=== PATIENT | female | born 1985 | race Hispanic/Latino ===

== ENCOUNTER 2018-07-06 20:41 | Emergency (ER) | payer OTHER ==
[~2018-07-06] VITALS: Ht 154.9 cm; Wt 59.0 kg
[~2018-07-06 20:41] MED LIST: CIPRO500 MG OR; LORTAB 5 OR; MEDDOSEPAK OR; NO HOME MEDS; ZITHROMAX500 MG OR
[2018-07-06 23:17] VITALS: BP 126/84
== END 2018-07-07 00:05 | disposition home or self-care (01) | DRG 605 ==
LOC: ED 20:41
DX: S30.0XXA Contusion of lower back and pelvis, initial encounter (principal); W17.89XA Other fall from one level to another, initial encounter

== ENCOUNTER 2019-02-28 16:54 | Emergency (ER) | payer OTHER ==
[~2019-02-28] VITALS: Ht 154.9 cm; Wt 64.0 kg
[2019-02-28] MEDS ORDERED: TORADOL PO (18:02)
[2019-02-28 18:09] VITALS: BP 140/89
== END 2019-02-28 18:15 | disposition home or self-care (01) | DRG 605 ==
LOC: ED 16:54
DX: S00.83XA Contusion of other part of head, initial encounter (principal); W21.03XA Struck by baseball, initial encounter; Y93.64 Activity, baseball; Y92.007 Garden or yard of unspecified non-institutional (private) residence as the place of occurrence of the external cause; R42 Dizziness and giddiness; R11.0 Nausea

== ENCOUNTER 2019-03-19 19:16 | Emergency (ER) | payer OTHER ==
[~2019-03-19] VITALS: Ht 154.9 cm; Wt 60.0 kg
[~2019-03-19 19:16] MED LIST changes: +TORADOL PO
[2019-03-19 20:45] VITALS: BP 140/94
== END 2019-03-19 20:45 | disposition home or self-care (01) | DRG 914 ==
LOC: ED 19:16
DX: S67.196A Crushing injury of right little finger, initial encounter (principal); W23.0XXA Caught, crushed, jammed, or pinched between moving objects, initial encounter; Y93.89 Activity, other specified; Y92.009 Unspecified place in unspecified non-institutional (private) residence as the place of occurrence of the external cause

== ENCOUNTER 2019-05-16 15:17 | Emergency (ER) | payer OTHER ==
[~2019-05-16] VITALS: Ht 154.9 cm; Wt 57.7 kg
[2019-05-16] MEDS ORDERED: VOLTAREN - GENE75 MG PO (17:14)
[2019-05-16] MEDS ORDERED: FLEXERIL5 MG PO (17:14)
[2019-05-16 17:37] VITALS: BP 122/86
== END 2019-05-16 17:37 | disposition home or self-care (01) | DRG 605 ==
LOC: ED 15:17
DX: S10.93XA Contusion of unspecified part of neck, initial encounter (principal); S16.1XXA Strain of muscle, fascia and tendon at neck level, initial encounter; W20.8XXA Other cause of strike by thrown, projected or falling object, initial encounter; Y92.89 Other specified places as the place of occurrence of the external cause

== ENCOUNTER 2019-08-11 | Emergency (ER) | payer OTHER ==
[~2019-08-11] MED LIST changes: +FLEXERIL5 MG PO; +VOLTAREN - GENE75 MG PO
[2019-08-11 18:44] LABS: URINE BILIRUBIN - DIPSTICK NEGATIVE (NEGATIVE); URINE BLOOD DIPSTICK TRACE-INTACT (NEGATIVE); URINE COLOR YELLOW; URINE GLUCOSE - DIPSTICK NEGATIVE (NEGATIVE); URINE KETONE NEGATIVE (NEGATIVE); URINE LEUK ESTERASE NEGATIVE (NEGATIVE); URINE NITRITE - DIPSTICK NEGATIVE (Negative); URINE PROTEIN - DIPSTICK NEGATIVE (NEG-TRACE); URINE SPECIFIC GRAVITY >=1.030; URINE UROBILINOGEN - DIPSTICK 0.2 E.U./dL (0.2)
[2019-08-11 18:46] LABS: HEMATOCRIT 38.5 % (37.0-47.0); HEMOGLOBIN 12.8 g/dl (12.0-16.0); IMMATURE GRANULOCYTES 0.3 % (0.0-5.0); MEAN CORPUSCULAR HGB CONC 33.2 g/L CALC (32.0-36.0); NEUT# 6.13 thou/uL (2.00-7.15); RED BLOOD COUNT 4.26 mill/uL (4.20-5.60); RED CELL DISTRI WIDTH 12.7 % (11.5-15.5)
[2019-08-11 18:57] LABS: MEAN CELL VOLUME 90.4 fL CALC (80.0-100.0)
[2019-08-11 19:25] LABS: ALBUMIN 4.1 g/dL (3.2-5.0); ALKALINE PHOSPHATASE 49 u/l (38-126); ANION GAP 11 (6-22 (CALC)); BUN 18 mg/dL (7-17); BUN/CREATININE RATIO 36 (12-20 (CALC)); CARBON DIOXIDE 25 mmol/l (22-30); CHLORIDE 108 mmol/l (95-108); CREATININE 0.5 mg/dL (0.5-1.0); GFR > 60 ML/MIN (>=60 (CALC)); GFR FOR AFR.AMER. > 60 ML/MIN (>=60 (CALC)); LIPASE 104 u/l (23-300); SGOT/AST 21 u/l (14-36); SODIUM 140 mmol/l (137-146); TOTAL PROTEIN 7.4 g/dL (6.3-8.2)
[2019-08-11 19:30] LABS: BILIRUBIN, TOTAL 0.6 mg/dL (0.0-1.4)
[2019-08-11] MEDS ORDERED: IBUPROFEN600 MG PO (20:59)
== END 2019-08-11 21:20 | disposition home or self-care (01) | DRG 204 ==
DX: R07.81 Pleurodynia (principal); Z91.041 Radiographic dye allergy status; V58.1XXA Passenger in pick-up truck or van injured in noncollision transport accident in nontraffic accident, initial encounter
CPT/HCPCS: Q9967

== ENCOUNTER 2019-09-26 | Emergency (ER) | payer OTHER ==
[~2019-09-26] MED LIST changes: +IBUPROFEN600 MG PO
[2019-09-26 15:11] LABS: URINE BILIRUBIN - DIPSTICK NEGATIVE (NEGATIVE); URINE BLOOD DIPSTICK LARGE (NEGATIVE); URINE COLOR YELLOW; URINE GLUCOSE - DIPSTICK NEGATIVE (NEGATIVE); URINE KETONE NEGATIVE (NEGATIVE); URINE LEUK ESTERASE NEGATIVE (NEGATIVE); URINE NITRITE - DIPSTICK NEGATIVE (Negative); URINE PROTEIN - DIPSTICK NEGATIVE (NEG-TRACE); URINE SPECIFIC GRAVITY >=1.030; URINE UROBILINOGEN - DIPSTICK 0.2 E.U./dL (0.2)
[2019-09-26 15:20] LABS: URINE SQUAMOUS EPITHELIAL CELL FEW EPI/hpf (0-FEW); URINE WBC 0-2 WBC/hpf (0-5)
[2019-09-26] MEDS ORDERED: HYDROCO/APAP1 TA9 PO (18:33)
== END 2019-09-26 18:45 | disposition home or self-care (01) | DRG 552 ==
PROVIDERS: Family Medicine
DX: S22.080A Wedge compression fracture of T11-T12 vertebra, initial encounter for closed fracture (principal); W18.2XXA Fall in (into) shower or empty bathtub, initial encounter; Y93.E1 Activity, personal bathing and showering; Y92.002 Bathroom of unspecified non-institutional (private) residence as the place of occurrence of the external cause

== ENCOUNTER 2020-05-21 16:20 | Emergency (ER) | payer OTHER ==
[~2020-05-21] VITALS: Ht 144.8 cm; Wt 64.0 kg
[~2020-05-21 16:20] MED LIST changes: +HYDROCO/APAP1 TA9 PO
[2020-05-21 17:03] LABS: URINE BILIRUBIN - DIPSTICK NEGATIVE (NEGATIVE); URINE BLOOD DIPSTICK NEGATIVE (NEGATIVE); URINE COLOR YELLOW; URINE GLUCOSE - DIPSTICK NEGATIVE (NEGATIVE); URINE KETONE NEGATIVE (NEGATIVE); URINE LEUK ESTERASE NEGATIVE (NEGATIVE); URINE NITRITE - DIPSTICK NEGATIVE (Negative); URINE PROTEIN - DIPSTICK NEGATIVE (NEG-TRACE); URINE SPECIFIC GRAVITY >=1.030; URINE UROBILINOGEN - DIPSTICK 0.2 E.U./dL (0.2)
[2020-05-21 17:11] LABS: HEMATOCRIT 39.5 % (37.0-47.0); HEMOGLOBIN 12.8 g/dl (12.0-16.0); IMMATURE GRANULOCYTES 0.4 % (0.0-5.0); MEAN CELL VOLUME 90.6 fL CALC (80.0-100.0); MEAN CORPUSCULAR HGB 29.4 pG CALC (26.0-32.0); MEAN CORPUSCULAR HGB CONC 32.4 g/dL CAL (32.0-36.0); NEUT# 8.2 thou/uL (2.00-7.15); RED BLOOD COUNT 4.36 mill/uL (4.20-5.60); RED CELL DISTRI WIDTH 12.5 % (11.5-15.5)
[2020-05-21 17:21] LABS: ALBUMIN 3.9 g/dL (3.2-5.0); ALKALINE PHOSPHATASE 42 u/l (38-126); AMYLASE 52 u/l (30-110); ANION GAP 11 (6-22 (CALC)); BILIRUBIN, TOTAL 0.8 mg/dL (0.0-1.4); BUN 13 mg/dL (7-17); BUN/CREATININE RATIO 25 (12-20 (CALC)); CARBON DIOXIDE 26 mmol/l (22-30); CHLORIDE 106 mmol/l (95-108); CREATININE 0.5 mg/dL (0.5-1.0); GFR > 60 ML/MIN (>=60 (CALC)); GFR FOR AFR.AMER. > 60 ML/MIN (>=60 (CALC)); LIPASE 76 u/l (23-300); POTASSIUM 3.9 mmol/l (3.5-5.1); SGOT/AST 22 u/l (14-36); SODIUM 139 mmol/l (137-146); TOTAL PROTEIN 6.8 g/dL (6.3-8.2)
[2020-05-21] MEDS ORDERED: LOMOTIL2.5 MG PO (18:33)
[2020-05-21 18:36] VITALS: BP 123/90
== END 2020-05-21 19:05 | disposition home or self-care (01) | DRG 392 ==
LOC: ED 16:20
PROVIDERS: Emergency Medicine
DX: K52.9 Noninfective gastroenteritis and colitis, unspecified (principal); Z90.49 Acquired absence of other specified parts of digestive tract
CPT/HCPCS: S0164

== ENCOUNTER 2020-08-13 15:16 | Emergency (ER) | payer OTHER, MEDICAID ==
[~2020-08-13] VITALS: Ht 144.8 cm; Wt 56.2 kg
[~2020-08-13 15:16] MED LIST changes: +LOMOTIL2.5 MG PO
[2020-08-13 17:47] LABS: HEMATOCRIT 38.7 % (37.0-47.0); IMMATURE GRANULOCYTES 0.3 % (0.0-5.0); MEAN CORPUSCULAR HGB 30.2 pG CALC (26.0-32.0); MEAN CORPUSCULAR HGB CONC 33.6 g/dL CAL (32.0-36.0); NEUT# 4.79 thou/uL (2.00-7.15); RED BLOOD COUNT 4.3 mill/uL (4.20-5.60); RED CELL DISTRI WIDTH 12.2 % (11.5-15.5)
[2020-08-13 18:05] LABS: ALKALINE PHOSPHATASE 55 u/l (38-126); ANION GAP 9 (6-22 (CALC)); BILIRUBIN, TOTAL 0.6 mg/dL (0.0-1.4); BUN 14 mg/dL (7-17); BUN/CREATININE RATIO 26 (12-20 (CALC)); CARBON DIOXIDE 25 mmol/l (22-30); CHLORIDE 107 mmol/l (95-108); CREATININE 0.5 mg/dL (0.5-1.0); GFR > 60 ML/MIN (>=60 (CALC)); GFR FOR AFR.AMER. > 60 ML/MIN (>=60 (CALC)); LIPASE 125 u/l (23-300); POTASSIUM 3.8 mmol/l (3.5-5.1); SGOT/AST 20 u/l (14-36); SODIUM 137 mmol/l (137-146); TOTAL PROTEIN 7.2 g/dL (6.3-8.2)
[2020-08-13] MEDS ORDERED: ZOFRAN4 M1 PO (18:22)
[2020-08-13 18:34] LABS: URINE BILIRUBIN - DIPSTICK NEGATIVE (NEGATIVE); URINE BLOOD DIPSTICK SMALL (NEGATIVE); URINE COLOR YELLOW; URINE GLUCOSE - DIPSTICK NEGATIVE (NEGATIVE); URINE KETONE 15 mg/dL (NEGATIVE); URINE LEUK ESTERASE NEGATIVE (NEGATIVE); URINE NITRITE - DIPSTICK NEGATIVE (Negative); URINE PROTEIN - DIPSTICK NEGATIVE (NEG-TRACE); URINE SPECIFIC GRAVITY >=1.030; URINE UROBILINOGEN - DIPSTICK 0.2 E.U./dL (0.2)
[2020-08-13 18:36] LABS: URINE SQUAMOUS EPITHELIAL CELL FEW EPI/hpf (0-FEW); URINE WBC 0-2 WBC/hpf (0-5)
[2020-08-13 19:44] VITALS: BP 131/81
== END 2020-08-13 19:44 | disposition home or self-care (01) | DRG 392 ==
LOC: ED 15:16
PROVIDERS: Family Medicine
DX: R10.84 Generalized abdominal pain (principal); R11.0 Nausea; R19.7 Diarrhea, unspecified; Z20.822 Contact with and (suspected) exposure to COVID-19

== ENCOUNTER 2020-08-25 16:17 | Emergency (ER) | payer OTHER, MEDICAID ==
[~2020-08-25] VITALS: Ht 144.8 cm; Wt 60.0 kg
[~2020-08-25 16:17] MED LIST changes: +ZOFRAN4 M1 PO
[2020-08-25 17:48] VITALS: BP 148/89
== END 2020-08-25 17:53 | disposition home or self-care (01) | DRG 605 ==
LOC: ED 16:17
DX: S90.452A Superficial foreign body, left great toe, initial encounter (principal); W25.XXXA Contact with sharp glass, initial encounter; W45.8XXA Other foreign body or object entering through skin, initial encounter; T80.89XA Other complications following infusion, transfusion and therapeutic injection, initial encounter; R20.2 Paresthesia of skin; Y84.8 Other medical procedures as the cause of abnormal reaction of the patient, or of later complication, without mention of misadventure at the time of the procedure

== ENCOUNTER 2021-02-18 20:01 | Emergency (ER) | payer OTHER, MEDICAID ==
[2021-02-18] MEDS ORDERED: NAPROXEN500 MG PO (23:15)
[2021-02-19 00:12] VITALS: BP 140/52
== END 2021-02-19 00:12 | disposition home or self-care (01) | DRG 605 ==
LOC: ED 20:01
DX: S90.121A Contusion of right lesser toe(s) without damage to nail, initial encounter (principal); W22.03XA Walked into furniture, initial encounter; Y92.009 Unspecified place in unspecified non-institutional (private) residence as the place of occurrence of the external cause

== ENCOUNTER 2021-06-20 19:23 | Emergency (ER) | payer OTHER, MEDICAID ==
[~2021-06-20] VITALS: Ht 144.8 cm; Wt 61.0 kg
[~2021-06-20 19:23] MED LIST changes: +NAPROXEN500 MG PO
[2021-06-20 20:21] LABS: ALBUMIN 3.9 g/dL (3.2-5.0); ALKALINE PHOSPHATASE 51 u/l (38-126); ANION GAP 9 (6-22 (CALC)); BILIRUBIN, TOTAL 0.5 mg/dL (0.0-1.4); BUN 12 mg/dL (7-17); BUN/CREATININE RATIO 26 (12-20 (CALC)); CARBON DIOXIDE 28 mmol/l (22-30); CHLORIDE 106 mmol/l (95-108); CREATININE 0.5 mg/dL (0.5-1.0); GFR > 60 ML/MIN (>=60 (CALC)); GFR FOR AFR.AMER. > 60 ML/MIN (>=60 (CALC)); POTASSIUM 3.7 mmol/l (3.5-5.1); SGOT/AST 21 u/l (14-36); SODIUM 140 mmol/l (137-146); TOTAL PROTEIN 7.3 g/dL (6.3-8.2)
[2021-06-20 20:27] LABS: HEMATOCRIT 40.6 % (37.0-47.0); HEMOGLOBIN 13.4 g/dl (12.0-16.0); IMMATURE GRANULOCYTES 0.3 % (0.0-5.0); MEAN CELL VOLUME 92.3 fL CALC (80.0-100.0); MEAN CORPUSCULAR HGB 30.5 pG CALC (26.0-32.0); NEUT# 5.11 thou/uL (2.00-7.15); RED BLOOD COUNT 4.4 mill/uL (4.20-5.60); RED CELL DISTRI WIDTH 12.1 % (11.5-15.5)
[2021-06-20 21:13] LABS: URINE BILIRUBIN - DIPSTICK NEGATIVE (NEGATIVE); URINE BLOOD DIPSTICK MODERATE (NEGATIVE); URINE COLOR YELLOW; URINE GLUCOSE - DIPSTICK NEGATIVE (NEGATIVE); URINE KETONE NEGATIVE (NEGATIVE); URINE LEUK ESTERASE NEGATIVE (NEGATIVE); URINE PROTEIN - DIPSTICK NEGATIVE (NEG-TRACE); URINE SPECIFIC GRAVITY 1.015; URINE UROBILINOGEN - DIPSTICK 0.2 E.U./dL (0.2)
[2021-06-20 21:33] LABS: URINE AMORPH SEDIMENT FEW hpf (NONE-FEW); URINE BACTERIA FEW hpf; URINE NITRITE - DIPSTICK NEGATIVE (Negative); URINE SQUAMOUS EPITHELIAL CELL FEW EPI/hpf (0-FEW); URINE WBC 0-2 WBC/hpf (0-5)
[2021-06-20 22:38] VITALS: BP 120/60
== END 2021-06-20 22:45 | disposition home or self-care (01) | DRG 914 ==
LOC: ED 19:23
PROVIDERS: Family Medicine
DX: S09.90XA Unspecified injury of head, initial encounter (principal); T14.8XXA Other injury of unspecified body region, initial encounter; W17.89XA Other fall from one level to another, initial encounter; Y93.44 Activity, trampolining; Y92.007 Garden or yard of unspecified non-institutional (private) residence as the place of occurrence of the external cause

== ENCOUNTER 2021-10-04 11:28 | Emergency (ER) | payer OTHER, MEDICAID ==
[~2021-10-04] VITALS: Ht 144.8 cm; Wt 50.0 kg
[2021-10-04 13:16] VITALS: BP 126/82
[2021-10-04 13:30] VITALS: BP 125/82
[2021-10-04 13:45] VITALS: BP 130/74
[2021-10-04 14:00] VITALS: BP 106/73
[2021-10-04 14:15] VITALS: BP 110/69
[2021-10-04 14:23] VITALS: BP 110/69
== END 2021-10-04 14:23 | disposition home or self-care (01) | DRG 563 ==
LOC: ED 11:28
DX: S63.617A Unspecified sprain of left little finger, initial encounter (principal); W23.0XXA Caught, crushed, jammed, or pinched between moving objects, initial encounter; Y93.K1 Activity, walking an animal

== ENCOUNTER 2022-08-15 14:55 | Emergency (ER) | payer OTHER, MEDICAID ==
[~2022-08-15] VITALS: Ht 144.8 cm; Wt 61.2 kg
[2022-08-15 15:28] VITALS: BP 131/96
[2022-08-15] MEDS ORDERED: DOXYCYCLINE100 MG PO (16:04)
[2022-08-15 16:10] VITALS: BP 131/96
== END 2022-08-15 16:21 | disposition home or self-care (01) | DRG 603 ==
LOC: ED 14:55
DX: L08.9 Local infection of the skin and subcutaneous tissue, unspecified (principal)

== ENCOUNTER 2022-08-28 20:38 | Emergency (ER) | payer OTHER, MEDICAID ==
[~2022-08-28] VITALS: Ht 144.8 cm; Wt 61.8 kg
[~2022-08-28 20:38] MED LIST changes: +DOXYCYCLINE100 MG PO
[2022-08-28 20:50] VITALS: BP 137/77
[2022-08-28 21:10] LABS: BASO% 0.6 % (0-3); EOS% 1.6 % (0-8); HEMATOCRIT 38.8 % (37.0-47.0); HEMOGLOBIN 12.7 g/dl (12.0-16.0); IMMATURE GRANULOCYTES 0.2 % (0.0-5.0); LYMPH% 23.5 % (15-41); MEAN CELL VOLUME 92.2 fL CALC (80.0-100.0); MEAN CORPUSCULAR HGB 30.2 pG CALC (26.0-32.0); MEAN CORPUSCULAR HGB CONC 32.7 g/dL CAL (32.0-36.0); MONO% 7.4 % (2-13); NEUT# 6.94 thou/uL (2.00-7.15); NEUT% 66.7 % (42-76); RED BLOOD COUNT 4.21 mill/uL (4.20-5.60)
[2022-08-28 21:11] LABS: URINE BILIRUBIN - DIPSTICK NEGATIVE (NEGATIVE); URINE BLOOD DIPSTICK TRACE-INTACT (NEGATIVE); URINE COLOR YELLOW; URINE GLUCOSE - DIPSTICK NEGATIVE (NEGATIVE); URINE KETONE NEGATIVE (NEGATIVE); URINE LEUK ESTERASE TRACE (NEGATIVE); URINE PH 6.5 (4.5-8.0); URINE PROTEIN - DIPSTICK NEGATIVE (NEG-TRACE); URINE SPECIFIC GRAVITY 1.025; URINE UROBILINOGEN - DIPSTICK 0.2 E.U./dL (0.2)
[2022-08-28 21:15] LABS: URINE NITRITE - DIPSTICK NEGATIVE (Negative)
[2022-08-28 21:38] LABS: ALKALINE PHOSPHATASE 47 u/l (38-126); ANION GAP 9 (6-22 (CALC)); BILIRUBIN, TOTAL 0.3 mg/dL (0.02-1.3); BUN 15 mg/dL (7-17); BUN/CREATININE RATIO 24 (12-20 (CALC)); CARBON DIOXIDE 25 mmol/l (22-30); CHLORIDE 106 mmol/l (95-108); CREATININE 0.6 mg/dL (0.5-1.0); GFR FOR AFR.AMER. > 60 ML/MIN (>=60 (CALC)); GFR OTHER RACES > 60 ML/MIN (>=60 (CALC)); POTASSIUM 3.9 mmol/l (3.5-5.1); SGOT/AST 24 u/l (14-36); SODIUM 137 mmol/l (137-146); TOTAL PROTEIN 6.9 g/dL (6.3-8.2)
[2022-08-28 22:46] VITALS: BP 125/78
[2022-08-28] MEDS ORDERED: MOTRIN800 MG PO (22:46)
[2022-08-28 22:49] VITALS: BP 125/78
== END 2022-08-28 22:59 | disposition home or self-care (01) | DRG 563 ==
LOC: ED 20:38
PROVIDERS: Family Medicine
DX: S39.012A Strain of muscle, fascia and tendon of lower back, initial encounter (principal); S39.011A Strain of muscle, fascia and tendon of abdomen, initial encounter; W18.30XA Fall on same level, unspecified, initial encounter; Y92.830 Public park as the place of occurrence of the external cause

== ENCOUNTER 2022-09-12 07:21 | Emergency (ER) | payer OTHER, MEDICAID ==
[~2022-09-12] VITALS: Ht 144.8 cm; Wt 62.5 kg
[~2022-09-12 07:21] MED LIST changes: +MOTRIN800 MG PO
[2022-09-12 07:33] VITALS: BP 140/92
[2022-09-12] MEDS ORDERED: CELEBREX200 M1 PO (09:34)
[2022-09-12] MEDS ORDERED: FLEXERIL5 M1 PO (09:34)
[2022-09-12 09:47] VITALS: BP 140/92
== END 2022-09-12 10:00 | disposition home or self-care (01) | DRG 90 ==
LOC: ED 07:21
DX: S06.0X0A Concussion without loss of consciousness, initial encounter (principal); V43.62XA Car passenger injured in collision with other type car in traffic accident, initial encounter

== ENCOUNTER 2024-04-07 16:01 | Emergency (ER) | payer OTHER ==
[~2024-04-07] VITALS: Ht 144.8 cm; Wt 63.0 kg
[~2024-04-07 16:01] MED LIST changes: +CELEBREX200 M1 PO; +FLEXERIL5 M1 PO
[2024-04-07 16:25] VITALS: BP 138/93
[2024-04-07] MEDS ORDERED: NEOMYCIN-BACITRACIN-POLYMYXIN 0.5 GM/PAK PAK TOP ONE (16:25)
[2024-04-07 16:31] VITALS: BP 100/81
[2024-04-07 16:32] VITALS: BP 100/81
== END 2024-04-07 16:48 | disposition home or self-care (01) | DRG 605 ==
LOC: ED 16:01
DX: S61.211A Laceration without foreign body of left index finger without damage to nail, initial encounter (principal); W26.8XXA Contact with other sharp object(s), not elsewhere classified, initial encounter

== ENCOUNTER 2024-04-14 11:32 | Emergency (ER) | payer OTHER ==
[~2024-04-14] VITALS: Ht 144.8 cm; Wt 63.5 kg
[2024-04-14 13:28] VITALS: BP 134/89
== END 2024-04-14 13:28 | disposition home or self-care (01) | DRG 605 ==
LOC: ED 11:32
DX: S90.32XA Contusion of left foot, initial encounter (principal); W20.8XXA Other cause of strike by thrown, projected or falling object, initial encounter; Y92.009 Unspecified place in unspecified non-institutional (private) residence as the place of occurrence of the external cause

== ENCOUNTER 2024-07-19 12:34 | Emergency (ER) | payer OTHER ==
[~2024-07-19] VITALS: Ht 144.8 cm; Wt 65.0 kg
[2024-07-19] MEDS ORDERED: NAPROXEN500 MG PO (16:23)
[2024-07-19 16:31] VITALS: BP 129/89
== END 2024-07-19 16:32 | disposition home or self-care (01) | DRG 605 ==
LOC: ED 12:34
DX: S90.32XA Contusion of left foot, initial encounter (principal); W20.8XXA Other cause of strike by thrown, projected or falling object, initial encounter

== ENCOUNTER 2024-08-25 10:00 | Emergency (ER) | payer OTHER ==
[~2024-08-25] VITALS: Ht 144.8 cm; Wt 64.4 kg
[2024-08-25] VITALS (9 sets, daily range): BP systolic 114–124; BP diastolic 66–81
[2024-08-25] MEDS ORDERED: MOTRIN400 MG/TAB PO (12:29)
[2024-08-25] MEDS ORDERED: KETOROLAC TROMETHAMINE 30 MG/ML SDV IM ONE (12:30)
== END 2024-08-25 13:27 | disposition home or self-care (01) | DRG 552 ==
LOC: ED 10:00
DX: M54.6 Pain in thoracic spine (principal); M54.50 Low back pain, unspecified

== ENCOUNTER 2024-09-16 13:54 | Emergency (ER) | payer OTHER ==
[2024-09-16] VITALS (8 sets, daily range): BP systolic 111–152; BP diastolic 73–86
[~2024-09-16] VITALS: Ht 144.8 cm; Wt 63.5 kg
[~2024-09-16 13:54] MED LIST changes: +MOTRIN400 MG/TAB PO
[2024-09-16] MEDS ORDERED: TRAMADOL HYDROC50 M1 PO (14:58)
== END 2024-09-16 15:49 | disposition home or self-care (01) | DRG 563 ==
LOC: ED 13:54
DX: S86.911A Strain of unspecified muscle(s) and tendon(s) at lower leg level, right leg, initial encounter (principal); V00.848A Other accident with standing micro-mobility pedestrian conveyance, initial encounter

== ENCOUNTER 2024-09-27 09:16 | Emergency (ER) | payer OTHER ==
[~2024-09-27] VITALS: Ht 144.8 cm; Wt 65.0 kg
[2024-09-27] VITALS (10 sets, daily range): BP systolic 110–131; BP diastolic 72–98
[~2024-09-27 09:16] MED LIST changes: +TRAMADOL HYDROC50 M1 PO
[2024-09-27] MEDS ORDERED: traMADol HCL 50 MG/TAB PO ONE (09:40)
[2024-09-27] MEDS ORDERED: KETOROLAC TROMETHAMINE 30 MG/ML SDV IM ONE (09:55)
[2024-09-27] MEDS ORDERED: IBUPROFEN600 MG PO (11:08)
== END 2024-09-27 11:35 | disposition home or self-care (01) | DRG 605 ==
LOC: ED 09:16
DX: S60.222A Contusion of left hand, initial encounter (principal); W23.2XXA Caught, crushed, jammed or pinched between a moving and stationary object, initial encounter; Y92.009 Unspecified place in unspecified non-institutional (private) residence as the place of occurrence of the external cause